=== PATIENT | female | born 1990 ===

== ENCOUNTER 2024-09-17 23:44 | Inpatient (IN) | payer BC, OTHER ==
[2024-09-18] MEDS ORDERED: dexmedeTOMIDine HCl 200 MCG/2 ML SDV ONE (00:15)
[2024-09-18] MEDS ORDERED: Phenylephrine 1% 10 MG/ML SDV ONE (00:15)
[2024-09-18] MEDS ORDERED: Sodium Chloride 0.9% 20 ML ONE (00:15)
[2024-09-18] MEDS ORDERED: ePHEDrine 50 MG/ML SDV ONE (00:15)
[2024-09-18] MEDS ORDERED: Dexamethasone 4 MG/ML 5 ML MDV ONE (00:15)
[2024-09-18] MEDS ORDERED: Oxytocin 10 Units/1 ML SDV ONE (00:15)
[2024-09-18] MEDS ORDERED: Ropivacaine 0.5% 5 MG/ML 30 ML SDV ONE (00:15)
[2024-09-18] MEDS ORDERED: Ondansetron 4 MG/2 ML SDV ONE (00:15)
[2024-09-18] MEDS ORDERED: Morphine PF 10 MG/10 ML SDV ONE (00:16)
[2024-09-18] MEDS ORDERED: fentaNYL 100 MCG/2 ML SDV ONE (00:16)
[2024-09-18] MEDS ORDERED: ceFAZolin 2 GM Vial ONE (00:22)
[2024-09-18] MEDS ORDERED: Azithromycin 500 MG Vial ONE (00:33)
[2024-09-18] MEDS ORDERED: Metoclopramide 10 MG/2 ML SDV ONE (00:40)
[2024-09-18] MEDS ORDERED: droPERidol 5 MG/2 ML SDV ONE (00:48)
[2024-09-18] MEDS ORDERED: Sodium Chloride 0.9% 2.5 ML Syringe FLUSH PRN ×2 (00:50→02:08)
[2024-09-18] MEDS ORDERED: Sodium Chloride 0.9% 10 ML Syringe FLUSH PRN ×2 (00:50→02:08)
[2024-09-18] MEDS ORDERED: Sodium Chloride 0.9% 20 ML SDV IV PRN (00:50)
[2024-09-18] MEDS ORDERED: Citric Acid/Sodium Citrate Solution 30 ML Cup PO ONE (00:50)
[2024-09-18] MEDS ORDERED: fentaNYL 50 MCG/ML SDV IVPUSH PRN (00:59)
[2024-09-18] MEDS ORDERED: diphenhydrAMINE 50 MG/ML SDV IVPUSH PRN (00:59)
[2024-09-18] MEDS ORDERED: Acetaminophen/oxyCODONE 325-5 MG Tab PO PRN (00:59)
[2024-09-18] MEDS ORDERED: fentaNYL 100 MCG/2 ML SDV IVPUSH PRN (00:59)
[2024-09-18] MEDS ORDERED: HYDROmorphone 1 MG/ML Syringe IVPUSH PRN (00:59)
[2024-09-18] MEDS ORDERED: Naloxone 0.4 MG/ML SDV IVPUSH PRN (00:59)
[2024-09-18] MEDS ORDERED: Nalbuphine 10 MG/1 ML Vial IVPUSH PRN (00:59)
[2024-09-18] MEDS ORDERED: Albuterol 0.083% 2.5 MG/3 ML Neb Soln NEB PRN (00:59)
[2024-09-18] MEDS ORDERED: Morphine 2 MG/ML SYRINGE IVPUSH PRN (00:59)
[2024-09-18] MEDS ORDERED: Ondansetron 4 MG/2 ML SDV IVPUSH PRN ×3 (00:59→02:08)
[2024-09-18] MEDS ORDERED: Metoclopramide 10 MG/2 ML SDV IVPUSH PRN (00:59)
[2024-09-18] MEDS ORDERED: Lactated Ringers 1,000 ML IV SCH (01:00)
[2024-09-18] MEDS ORDERED: Oxytocin/0.9 % Sodium Chloride 30 UNIT/500 ML BAG IV SCH ×2 (01:00→02:15)
[2024-09-18] MEDS ORDERED: Tranexamic Acid 1,000 MG/10 ML Vial ONE (01:08)
[2024-09-18 01:55] LABS: HEMATOCRIT 32.9 % (37.0-47.0); HEMOGLOBIN 10.8 g/dL (12.0-16.0); MEAN CORPUSCULAR HEMOGLOBIN 27.1 pg (28.0-32.0); MEAN CORPUSCULAR HGB CONC 32.8 g/dL (32.0-36.0); MEAN CORPUSCULAR VOLUME 82.7 fL (83.0-99.0); NRBC ABSOLUTE 0.02 K/uL (0.00-0.02); NRBC PERCENT 0.3 /100WBC (0.0-0.2); PLATELET COUNT,PLT 129 K/uL (150-400); RED BLOOD CELL COUNT 3.98 M/uL (4.10-5.30); WHITE BLOOD CELL COUNT,WBC 7.72 K/uL (3.9-11.3)
[2024-09-18] MEDS ORDERED: Measles, Mumps & Rubella Vaccine 0.5 ML SDV SUBCUT ONE (02:08)
[2024-09-18] MEDS ORDERED: oxyCODONE 5 MG Tab PO PRN (02:08)
[2024-09-18] MEDS ORDERED: Diphtheria,Pertussis(Acell),Tetanus Vaccine 0.5 ML Syringe IM ONE (02:08)
[2024-09-18] MEDS ORDERED: Lanolin 100% Cream 7 GM Tube TOP PRN (02:08)
[2024-09-18] MEDS ORDERED: Methylergonovine 0.2 MG/1 ML Amp IM ONE (02:08)
[2024-09-18] MEDS ORDERED: Carboprost Tromethamine 250 MCG/1 mL Vial IM PRN (02:08)
[2024-09-18] MEDS ORDERED: Misoprostol 200 MCG Tab RECTAL PRN (02:08)
[2024-09-18 02:34] LABS: PH,UMBILICAL ARTERIAL 7.02 (7.18-7.38); PH,UMBILICAL VENOUS 7.02 (7.25-7.45)
[2024-09-18] MEDS: Ketorolac 30 MG/ML SDV IVPUSH SCH (02:41)
[2024-09-18] MEDS: Acetaminophen 500 MG Tab PO SCH (02:43)
[2024-09-18 05:48] LABS: BASOPHILS ABSOLUTE AUTO 0.01 K/uL (0.00-0.20); BASOPHILS PERCENT AUTO 0.1 % (0.0-1.0); EOSINOPHILS ABSOLUTE AUTO 0.02 K/uL (0.00-0.45); EOSINOPHILS PERCENT AUTO 0.2 % (0.0-6.0); HEMATOCRIT 32.7 % (37.0-47.0); HEMOGLOBIN 10.7 g/dL (12.0-16.0); IMMATURE GRAN ABSOLUTE AUTO 0.12 K/uL (0.00-0.05); IMMATURE GRAN PERCENT AUTO 0.9 % (0.0-0.4); LYMPHOCYTES PERCENT AUTO 5.4 % (24.0-44.0); MEAN CORPUSCULAR HGB CONC 32.7 g/dL (32.0-36.0); MEAN CORPUSCULAR VOLUME 82.4 fL (83.0-99.0); MONOCYTES PERCENT AUTO 3.1 % (0.0-8.0); NEUTROPHILS ABSOLUTE AUTO 11.72 K/uL (1.80-7.70); NEUTROPHILS PERCENT AUTO 90.3 % (41.0-71.0); PLATELET COUNT,PLT 122 K/uL (150-400); RED BLOOD CELL COUNT 3.97 M/uL (4.10-5.30); WHITE BLOOD CELL COUNT,WBC 12.97 K/uL (3.9-11.3)
[2024-09-18] MEDS: Docusate Sodium 100 MG Cap PO SCH (08:35)
[2024-09-18] MEDS: Phenylephrine HCl In 0.9% NaCl 1 MG/10 ML Syringe IVPUSH PRN (13:51)
[2024-09-19] MEDS: Ibuprofen 800 MG Tab PO SCH (03:48)
[2024-09-19 10:59] LABS: BASOPHILS ABSOLUTE AUTO 0.04 K/uL (0.00-0.20); BASOPHILS PERCENT AUTO 0.2 % (0.0-1.0); EOSINOPHILS ABSOLUTE AUTO 0.07 K/uL (0.00-0.45); EOSINOPHILS PERCENT AUTO 0.4 % (0.0-6.0); HEMATOCRIT 31.6 % (37.0-47.0); HEMOGLOBIN 10.2 g/dL (12.0-16.0); IMMATURE GRAN ABSOLUTE AUTO 0.08 K/uL (0.00-0.05); IMMATURE GRAN PERCENT AUTO 0.5 % (0.0-0.4); LYMPHOCYTES ABSOLUTE AUTO 1.85 K/uL (1.00-4.80); LYMPHOCYTES PERCENT AUTO 10.6 % (24.0-44.0); MEAN CORPUSCULAR HEMOGLOBIN 27.1 pg (28.0-32.0); MEAN CORPUSCULAR HGB CONC 32.3 g/dL (32.0-36.0); MEAN PLATELET VOLUME 12.9 fL (9.4-12.3); MONOCYTES ABSOLUTE AUTO 1.37 K/uL (0.00-0.80); MONOCYTES PERCENT AUTO 7.8 % (0.0-8.0); NEUTROPHILS ABSOLUTE AUTO 14.06 K/uL (1.80-7.70); NEUTROPHILS PERCENT AUTO 80.5 % (41.0-71.0); NRBC ABSOLUTE 0.03 K/uL (0.00-0.02); NRBC PERCENT 0.2 /100WBC (0.0-0.2); PLATELET COUNT,PLT 169 K/uL (150-400); RED BLOOD CELL COUNT 3.76 M/uL (4.10-5.30); WHITE BLOOD CELL COUNT,WBC 17.47 K/uL (3.9-11.3)
[2024-09-20] MEDS: oxyCODONE 5 MG Tab PO PRN (00:43)
[2024-09-20] MEDS: Acetaminophen 500 MG Tab PO PRN (03:16)
[2024-09-20] MEDS: Ibuprofen 800 MG Tab PO PRN (12:23)
== END 2024-09-20 13:20 | disposition home or self-care (01) | DRG 540 ==
LOC: MW.OBCHECK 23:44 → MW.OB 23:44 → MW.OBCHECK 09-18 00:50 → OBSVTOIN 09-18 00:59 → MW.OB 09-18 15:33
PROVIDERS: ADMIT Obstetrics & Gynecology; ATTEND Obstetrics & Gynecology
PROC: 10D00Z1 Extraction of Products of Conception, Low, Open Approach (ICD-10-PCS; principal; 2024-09-18 00:30)
DX: O34.211 Maternal care for low transverse scar from previous cesarean delivery (principal); Z3A.37 37 weeks gestation of pregnancy; Z37.0 Single live birth; Z79.899 Other long term (current) drug therapy; O24.420 Gestational diabetes mellitus in childbirth, diet controlled; O99.113 Other diseases of the blood and blood-forming organs and certain disorders involving the immune mechanism complicating pregnancy, third trimester; K66.0 Peritoneal adhesions (postprocedural) (postinfection); O90.81 Anemia of the puerperium
CPT/HCPCS: 01961; 36415; 59025; 59514; 64488; 82803; 82947; 85025; 85027; 86592; 86850; 86900; 86901; A9270-GY; J0456; J0690; J1100; J1790; J1885; J2274; J2371; J2405; J2590; J2765; J2795; J3010; J3490

== ENCOUNTER 2024-09-22 17:51 | Observation (INO) | payer BC ==
[2024-09-22 18:25] LABS: BASOPHILS ABSOLUTE AUTO 0.02 K/uL (0.00-0.20); BASOPHILS PERCENT AUTO 0.2 % (0.0-1.0); EOSINOPHILS ABSOLUTE AUTO 0.22 K/uL (0.00-0.45); EOSINOPHILS PERCENT AUTO 2.6 % (0.0-6.0); HEMOGLOBIN 9.7 g/dL (12.0-16.0); IMMATURE GRAN ABSOLUTE AUTO 0.04 K/uL (0.00-0.05); IMMATURE GRAN PERCENT AUTO 0.5 % (0.0-0.4); LYMPHOCYTES ABSOLUTE AUTO 1.74 K/uL (1.00-4.80); LYMPHOCYTES PERCENT AUTO 20.2 % (24.0-44.0); MEAN CORPUSCULAR HEMOGLOBIN 27.2 pg (28.0-32.0); MEAN CORPUSCULAR HGB CONC 32.3 g/dL (32.0-36.0); MEAN PLATELET VOLUME 11.5 fL (9.4-12.3); MONOCYTES ABSOLUTE AUTO 0.66 K/uL (0.00-0.80); MONOCYTES PERCENT AUTO 7.7 % (0.0-8.0); NEUTROPHILS ABSOLUTE AUTO 5.92 K/uL (1.80-7.70); NEUTROPHILS PERCENT AUTO 68.8 % (41.0-71.0); PLATELET COUNT,PLT 245 K/uL (150-400); RED BLOOD CELL COUNT 3.57 M/uL (4.10-5.30)
[2024-09-22 18:30] LABS: INR < 0.93 (0.86-1.11); PTT,PARTIAL THROMBOPLSTIN TIME 26.1 SEC (23.9-30.7)
[2024-09-22 18:35] LABS: APPEARANCE,URINE CLEAR; BILIRUBIN,URINE NEGATIVE (NEGATIVE); COLOR,URINE YELLOW; GLUCOSE,URINE NEGATIVE (NEGATIVE); KETONES,URINE NEGATIVE (NEGATIVE); LEUKOCYTE ESTERASE,URINE SMALL (NEGATIVE); NITRITE,URINE NEGATIVE (NEGATIVE); OCCULT BLOOD,URINE LARGE (NEGATIVE); PH,URINE 7.5 (5.0-8.0); PROTEIN,URINE NEGATIVE (NEGATIVE); UROBILINOGEN,URINE 0.2 EU/dL (<2.0)
[2024-09-22 18:53] LABS: BACTERIA,URINE RARE (NEGATIVE); EPITHELIAL CELLS,URINE FEW (NONE-FEW)
[2024-09-22] MEDS: Acetaminophen 325 MG/10.15 ML PO ONE (19:08)
[2024-09-22 19:27] LABS: A/G RATIO 0.5 (0.9-1.6); ALBUMIN 1.9 g/dL (3.4-5.0); BILIRUBIN TOTAL 0.3 mg/dL (0.2-1.0); CARBON DIOXIDE,CO2 29.3 mmol/L (21.0-32.0); CREATININE 0.6 mg/dL (0.6-1.0); EST CRCL DRUG DOSING (CG) 93.11 mL/min; POTASSIUM,K 4.3 mmol/L (3.5-5.1); PROTEIN TOTAL,TP 5.4 g/dL (6.4-8.2)
[2024-09-22] MEDS: Iopamidol 755 MG/ML 500 ML Multipack Bottle IVPUSH ONE (20:06)
[2024-09-22] MEDS: cefTRIAXone 1 GM in Water For Injection, Sterile 10 ML IVPUSH ONE (21:26)
[2024-09-23] MEDS ORDERED: Docusate Sodium 100 MG Cap PO PRN (01:14)
[2024-09-23] MEDS ORDERED: oxyCODONE 5 MG Tab PO PRN (01:37)
[2024-09-23] MEDS: Pantoprazole 40 MG in Sodium Chloride 0.9% 10 ML IVPUSH SCH (02:05)
[2024-09-23] MEDS: Ibuprofen 600 MG Tab PO PRN (02:08)
[2024-09-23] MEDS ORDERED: oxyCODONE 5 MG Tab PO SCH (04:00)
[2024-09-23 09:00] LABS: BASOPHILS ABSOLUTE AUTO 0.01 K/uL (0.00-0.20); BASOPHILS PERCENT AUTO 0.2 % (0.0-1.0); EOSINOPHILS ABSOLUTE AUTO 0.16 K/uL (0.00-0.45); EOSINOPHILS PERCENT AUTO 2.6 % (0.0-6.0); HEMATOCRIT 28.3 % (37.0-47.0); HEMOGLOBIN 9.2 g/dL (12.0-16.0); IMMATURE GRAN ABSOLUTE AUTO 0.03 K/uL (0.00-0.05); IMMATURE GRAN PERCENT AUTO 0.5 % (0.0-0.4); LYMPHOCYTES ABSOLUTE AUTO 1.32 K/uL (1.00-4.80); LYMPHOCYTES PERCENT AUTO 21.2 % (24.0-44.0); MEAN CORPUSCULAR HEMOGLOBIN 27.2 pg (28.0-32.0); MEAN CORPUSCULAR HGB CONC 32.5 g/dL (32.0-36.0); MEAN CORPUSCULAR VOLUME 83.7 fL (83.0-99.0); MEAN PLATELET VOLUME 10.9 fL (9.4-12.3); MONOCYTES ABSOLUTE AUTO 0.46 K/uL (0.00-0.80); MONOCYTES PERCENT AUTO 7.4 % (0.0-8.0); NEUTROPHILS ABSOLUTE AUTO 4.24 K/uL (1.80-7.70); NEUTROPHILS PERCENT AUTO 68.1 % (41.0-71.0); PLATELET COUNT,PLT 254 K/uL (150-400); RED BLOOD CELL COUNT 3.38 M/uL (4.10-5.30); WHITE BLOOD CELL COUNT,WBC 6.22 K/uL (3.9-11.3)
[2024-09-23 09:23] LABS: A/G RATIO 0.5 (0.9-1.6); ALBUMIN 1.7 g/dL (3.4-5.0); BILIRUBIN TOTAL 0.2 mg/dL (0.2-1.0); CALCIUM 7.6 mg/dL (8.5-10.1); CARBON DIOXIDE,CO2 23.3 mmol/L (21.0-32.0); CREATININE 0.7 mg/dL (0.6-1.0); EST CRCL DRUG DOSING (CG) 79.8 mL/min; POTASSIUM,K 3.6 mmol/L (3.5-5.1)
== END 2024-09-23 12:00 | disposition home or self-care (01) ==
LOC: MW.ED 17:51 → MW.MS 23:16
PROVIDERS: ADMIT Internal Medicine; ATTEND Internal Medicine
DX: R07.89 Other chest pain (principal); K80.20 Calculus of gallbladder without cholecystitis without obstruction; K21.9 Gastro-esophageal reflux disease without esophagitis; Z79.899 Other long term (current) drug therapy
CPT/HCPCS: 36415; 70450; 71275; 76705; 80053; 81001; 83690; 83735; 83880; 84484; 85025; 85610; 85730; 87086; 93005; 96374; 96375; 99285; A9270; G0378; J0696; J2470; Q9967; 93010; 99284